=== PATIENT | male | born 1945 | race Caucasian/White ===

== ENCOUNTER 2017-05-18 08:51 | Inpatient (IN) | payer SELFPAY ==
[~2017-05-18] VITALS: Ht 170.2 cm; Wt 65.9 kg
[~2017-05-18 08:51] MED LIST: ALDACTONE25 MG PO; ASPIR 8181 M1 PO; ASPIR-LOW81 MG PO; ASPIRIN325 MG PO; Aspirin E.C. PO; BUMEX1 MG PO; CARBATROL-ER200 MG PO; CHILDREN'S ASPI81 M1 PO; CLEARLAX510 GM PO; CLOPIDOGREL75 MG PO; Cozaar PO; DIOVAN40 MG PO; Dulcolax PO; K-Dur PO; KLOR-CON M2020 MEQ PO; LASIX20 MG PO; LOPRESSOR25 MG PO; LOSARTAN POTASS50 MG PO; LOW DOSE ASPIRI81 M2; Lopressor PO; MEGA BENFOTIAMINE PO; METOPROLOL SUC100 MG PO; METOPROLOL SUCC25 MG PO; METOPROLOL TART50 MG PO; Miralax, Glycolax PO; Motrin PO; NITROSTAT0.4 MG SL; OMNICEF300 M1 PO; Omnicef PO; PEPPERMINT OIL TP; PRAVASTATIN SOD10 MG PO; PROVENTIL,2.5 MG/3 M IH; PROVENTIL,200 INHALA IH; Protonix PO; Proventil,Ventolin H IH; Ultram PO; VITAMIN B-1250 MG PO; VITAMIN E200 UNI2 PO; VITAMIN E200 UNI3 PO; Xanax PO; Zocor PO
[2017-05-18 10:04] LABS: HEMATOCRIT 37.7 % (38.0-50.0); MCH 33.7 PG (29.0-34.0); MCHC 34.2 G/DL (30.0-36.0); MCV 98.4 FL (86-99); MEAN PLAT.VOLUME 9.8 uM^3 (9.0-12.4); PLATELET COUNT 124 K/uL (156-360); RBC DIS.WIDTH-CV 13.2 % (11.8-14.6); RBC DIS.WIDTH-SD 47.8 % (39-53); RED BLOOD COUNT 3.83 M/uL (4.00-5.50); WHITE BLOOD COUNT 8.5 K/uL (4.1-10.2)
[2017-05-18 10:13] LABS: CHLORIDE 94 mEq/L (99-109); POTASSIUM 4.9 mEq/L (3.7-5.4); SODIUM 127 mEq/L (136-147)
[2017-05-18 10:15] LABS: GLUCOSE 118 mg/dL (70-99)
[2017-05-18 10:17] LABS: ANION GAP 8 MEQ/L (2-14); TOTAL BILIRUBIN 0.6 mg/dL (0.0-1.0)
[2017-05-18 10:19] LABS: ALKALINE PHOSPHATASE 74 IU/L (3-129); GFR ESTIMATE (CALCULATED) > 59 mL/min/
[2017-05-18 10:20] LABS: UREA NITROGEN (BUN) 20 mg/dL (9-23)
[2017-05-18] MEDS ORDERED: VITAMIN B-6100 MG PO (11:55)
[2017-05-18] MEDS ORDERED: CATAPLEX B PO (11:57)
[2017-05-18] MEDS ORDERED: CATALYN PO ×2 (11:59→12:00)
[2017-05-18] MEDS ORDERED: COD LIVER OIL1 EACH PO (12:00)
[2017-05-18] MEDS ORDERED: L-LYSINE500 M2 PO (12:01)
[2017-05-18] MEDS ORDERED: [UNRECOGNIZED DRUG - OTHER] PO (12:05)
[2017-05-18] MEDS ORDERED: CALCIUM LACTAT100 MG PO (12:14)
[2017-05-18 15:33] VITALS: BP 112/64
[2017-05-18 21:00] VITALS: BP 125/78
[2017-05-18 23:30] VITALS: BP 122/82
[2017-05-19 04:00] VITALS: BP 113/57
[2017-05-19 06:38] LABS: EOSINOPHIL (%) 0 % (0-5); HEMATOCRIT 39.3 % (38.0-50.0); IMMATURE GRANULOCYTE (%) 0.5 % (0.0-0.7); INSTRUMENT ABS NEUTROPHIL CT 6.6 K/uL; LYMPHOCYTE COUNT 0.4 K/uL (1.0-2.8); MCH 34.5 PG (29.0-34.0); MCHC 34.4 G/DL (30.0-36.0); MCV 100.5 FL (86-99); MEAN PLAT.VOLUME 10.2 uM^3 (9.0-12.4); MONOCYTE (%) 5.6 % (3-12); MONOCYTE COUNT 0.4 K/uL (0-0.8); NEUTROPHIL (%) 88.2 % (45-76); NEUTROPHIL COUNT 6.6 K/uL (1.8-6.4); PLATELET COUNT 112 K/uL (156-360); RBC DIS.WIDTH-CV 13.2 % (11.8-14.6); RBC DIS.WIDTH-SD 49.2 % (39-53); RED BLOOD COUNT 3.91 M/uL (4.00-5.50); WHITE BLOOD COUNT 7.5 K/uL (4.1-10.2)
[2017-05-19 06:45] VITALS: BP 136/77
[2017-05-19 06:57] LABS: ANION GAP 11 MEQ/L (2-14); CHLORIDE 96 MEQ/L (99-109); GFR ESTIMATE (CALCULATED) > 59 mL/min/; GLUCOSE 138 mg/dL (70-99); POTASSIUM 4.5 MEQ/L (3.7-5.4); SAMPLE HEMOLYSIS CHECK 0; SAMPLE ICTERIC CHECK 0; SAMPLE LIPEMIA CHECK 0; SODIUM 131 MEQ/L (136-147); UREA NITROGEN (BUN) 19 mg/dL (9-23)
[2017-05-19 15:00] VITALS: BP 130/72
[2017-05-20 00:05] VITALS: BP 134/72
[2017-05-20 04:20] VITALS: BP 128/68
[2017-05-20 06:33] LABS: HEMATOCRIT 36.7 % (38.0-50.0); MCH 33.9 PG (29.0-34.0); MCHC 34.1 G/DL (30.0-36.0); MCV 99.5 FL (86-99); MEAN PLAT.VOLUME 10.1 uM^3 (9.0-12.4); PLATELET COUNT 144 K/uL (156-360); RBC DIS.WIDTH-CV 13.1 % (11.8-14.6); RBC DIS.WIDTH-SD 47.8 % (39-53); RED BLOOD COUNT 3.69 M/uL (4.00-5.50); WHITE BLOOD COUNT 11.9 K/uL (4.1-10.2)
[2017-05-20 06:57] LABS: ALKALINE PHOSPHATASE 64 IU/L (3-129); ANION GAP 12 MEQ/L (2-14); CHLORIDE 99 MEQ/L (99-109); GFR ESTIMATE (CALCULATED) > 59 mL/min/; GLUCOSE 120 mg/dL (70-99); POTASSIUM 4.6 MEQ/L (3.7-5.4); SAMPLE HEMOLYSIS CHECK 0; SAMPLE ICTERIC CHECK 0; SAMPLE LIPEMIA CHECK 0; SODIUM 133 MEQ/L (136-147); TOTAL BILIRUBIN 0.5 MG/DL (0.0-1.0); UREA NITROGEN (BUN) 25 mg/dL (9-23)
[2017-05-20 07:00] VITALS: BP 128/78
[2017-05-20 11:00] VITALS: BP 130/80
[2017-05-20 15:00] VITALS: BP 131/83
[2017-05-20 23:35] VITALS: BP 122/78
[2017-05-21 06:20] LABS: ALKALINE PHOSPHATASE 65 IU/L (3-129); ANION GAP 11 MEQ/L (2-14); CHLORIDE 99 MEQ/L (99-109); GFR ESTIMATE (CALCULATED) > 59 mL/min/; GLUCOSE 118 mg/dL (70-99); POTASSIUM 4.8 MEQ/L (3.7-5.4); SAMPLE HEMOLYSIS CHECK 0; SAMPLE ICTERIC CHECK 0; SAMPLE LIPEMIA CHECK 0; SODIUM 132 MEQ/L (136-147); TOTAL BILIRUBIN 0.5 MG/DL (0.0-1.0); UREA NITROGEN (BUN) 31 mg/dL (9-23)
[2017-05-21 07:34] VITALS: BP 140/90
[2017-05-21 15:27] VITALS: BP 125/67
[2017-05-21 22:22] VITALS: BP 122/62
[2017-05-22 07:27] VITALS: BP 124/68
[2017-05-22 11:11] LABS: BASOPHIL COUNT 0.1 K/uL (0-0.1); EOSINOPHIL (%) 0.2 % (0-5); HEMATOCRIT 35.7 % (38.0-50.0); IMMATURE GRANULOCYTE (%) 0.7 % (0.0-0.7); IMMATURE GRANULOCYTE COUNT 0.1 K/uL; INSTRUMENT ABS NEUTROPHIL CT 12.6 K/uL; LYMPHOCYTE COUNT 0.6 K/uL (1.0-2.8); MCH 33.8 PG (29.0-34.0); MCHC 33.6 G/DL (30.0-36.0); MCV 100.6 FL (86-99); MEAN PLAT.VOLUME 9.5 uM^3 (9.0-12.4); MONOCYTE (%) 8.7 % (3-12); MONOCYTE COUNT 1.3 K/uL (0-0.8); NEUTROPHIL (%) 86.2 % (45-76); NEUTROPHIL COUNT 12.6 K/uL (1.8-6.4); PLATELET COUNT 166 K/uL (156-360); RBC DIS.WIDTH-CV 13.2 % (11.8-14.6); RBC DIS.WIDTH-SD 49.2 % (39-53); RED BLOOD COUNT 3.55 M/uL (4.00-5.50); WHITE BLOOD COUNT 14.7 K/uL (4.1-10.2)
[2017-05-22] MEDS ORDERED: CEFTIN500 MG PO (12:11)
[2017-05-22] MEDS ORDERED: VALACYCLOVIR500 MG PO (12:11)
[2017-05-22] MEDS ORDERED: COMBIVENT RESPIM4 GM IH (12:11)
[2017-05-22] MEDS ORDERED: PREDNISONE20 MG PO (12:12)
[2017-05-22] MEDS ORDERED: ERYTHROMYC1 APPLICAT BOTH EYES (12:14)
== END 2017-05-22 15:45 | disposition home or self-care (01) | DRG 125 ==
LOC: EME 08:51 → EDOF 11:56 → 5EAST 11:56 → ENRESERV 12:33 → EDOF 12:58 → ENRESERV 12:58 → 5EAST 14:50
PROVIDERS: Internal Medicine; Nurse Practitioner Family
DX: B02.39 Other herpes zoster eye disease (principal); B02.31 Zoster conjunctivitis; H10.502 Unspecified blepharoconjunctivitis, left eye; B02.8 Zoster with other complications; L03.213 Periorbital cellulitis; L03.211 Cellulitis of face; B01.89 Other varicella complications; E87.1 Hypo-osmolality and hyponatremia; H35.369 Drusen (degenerative) of macula, unspecified eye; H43.813 Vitreous degeneration, bilateral; I11.0 Hypertensive heart disease with heart failure; I50.9 Heart failure, unspecified; I25.10 Atherosclerotic heart disease of native coronary artery without angina pectoris; I25.5 Ischemic cardiomyopathy; G62.9 Polyneuropathy, unspecified; G25.81 Restless legs syndrome; I25.2 Old myocardial infarction; F03.90 Unspecified dementia, unspecified severity, without behavioral disturbance, psychotic disturbance, mood disturbance, and anxiety; J45.909 Unspecified asthma, uncomplicated; F41.9 Anxiety disorder, unspecified; Z66 Do not resuscitate; Z82.49 Family history of ischemic heart disease and other diseases of the circulatory system; Z85.828 Personal history of other malignant neoplasm of skin; Z86.74 Personal history of sudden cardiac arrest; Z95.5 Presence of coronary angioplasty implant and graft; Z95.810 Presence of automatic (implantable) cardiac defibrillator
CPT/HCPCS: 71010; 80048; 80053; 80202; 83930; 83935; 84300; 85025; 85027; 87040; 87070; 87075; 87205; 87254; 99202; 99281; 99285; J0133; J0696; J1650; J2405; J3370; J7030; J7050; J7512

== ENCOUNTER 2018-02-26 19:33 | Inpatient (IN) | payer SELFPAY ==
[~2018-02-26] VITALS: Ht 167.6 cm; Wt 76.0 kg
[~2018-02-26 19:33] MED LIST changes: +CALCIUM LACTAT100 MG PO; +CATALYN PO; +CATAPLEX B PO; +CEFTIN500 MG PO; +COD LIVER OIL1 EACH PO; +COMBIVENT RESPIM4 GM IH; +ERYTHROMYC1 APPLICAT BOTH EYES; +L-LYSINE500 M2 PO; +PREDNISONE20 MG PO; +VALACYCLOVIR500 MG PO; +VITAMIN B-6100 MG PO; +[UNRECOGNIZED DRUG - OTHER] PO
[2018-02-26 20:02] LABS: HEMATOCRIT 33.7 % (38.0-50.0); HEMOGLOBIN 12.1 G/DL (12.5-16.6); MCH 35.2 PG (29.0-34.0); MCHC 35.9 G/DL (30.0-36.0); PLATELET COUNT 144 K/uL (156-360); RBC DIS.WIDTH-CV 13.4 % (11.8-14.6); RBC DIS.WIDTH-SD 48.7 % (39-53); RED BLOOD COUNT 3.44 M/uL (4.00-5.50); WHITE BLOOD COUNT 6.6 K/uL (4.1-10.2)
[2018-02-26 20:13] LABS: CHLORIDE 96 mEq/L (99-109); POTASSIUM 4.6 mEq/L (3.7-5.4); SODIUM 132 mEq/L (136-147)
[2018-02-26 20:14] LABS: GLUCOSE 151 mg/dL (70-99)
[2018-02-26 20:18] LABS: CREATININE 0.9 mg/dL (0.6-1.3); GFR ESTIMATE (CALCULATED) > 59 mL/min/ (58.99-99999)
[2018-02-26 20:19] LABS: UREA NITROGEN (BUN) 21 mg/dL (9-23)
[2018-02-26 20:25] LABS: TROP-I INTERPRETATION NEGATIVE; TROPONIN-I < 0.01 ng/mL (0.0-0.30)
[2018-02-26 21:28] LABS: TOTAL PROTEIN 6.8 g/dL (6.4-8.3)
[2018-02-26 21:30] LABS: TOTAL BILIRUBIN 0.3 mg/dL (0.0-1.0)
[2018-02-26 21:31] LABS: ALKALINE PHOSPHATASE 77 IU/L (3-129)
[2018-02-26 21:33] LABS: AST (GOT) 15 IU/L (2-34); DIRECT BILIRUBIN 0.1 mg/dL (0.0-0.3)
[2018-02-26 21:34] LABS: ALT (GPT) 15 IU/L (3-49)
[2018-02-26] MEDS ORDERED: PLAVIX75 MG PO (23:35)
[2018-02-26] MEDS ORDERED: A-F BETAFOOD PO (23:42)
[2018-02-26] MEDS ORDERED: A-C CARBAMIDE PO (23:43)
[2018-02-26] MEDS ORDERED: LOSARTAN POTASS25 MG PO (23:44)
[2018-02-26] MEDS ORDERED: CARDIOPLUS PO (23:45)
[2018-02-26] MEDS ORDERED: [UNRECOGNIZED DRUG - OTHER] PO (23:46)
[2018-02-26] MEDS ORDERED: [UNRECOGNIZED DRUG - OTHER] PO (23:47)
[2018-02-26] MEDS ORDERED: CALCIUM LACTAT100 MG PO (23:47)
[2018-02-26] MEDS ORDERED: [UNRECOGNIZED DRUG - SUPPLY] TP (23:47)
[2018-02-26] MEDS ORDERED: ATACAND4 MG PO (23:48)
[2018-02-26] MEDS ORDERED: [UNRECOGNIZED DRUG - OTHER] PO (23:48)
[2018-02-26] MEDS ORDERED: [UNRECOGNIZED DRUG - OTHER] PO (23:49)
[2018-02-26] MEDS ORDERED: [UNRECOGNIZED DRUG - OTHER] PO (23:49)
[2018-02-27 03:13] VITALS: BP 106/59
[2018-02-27 07:37] VITALS: BP 112/63
[2018-02-27 12:01] VITALS: BP 120/67
[2018-02-27 15:27] VITALS: BP 114/63
[2018-02-27 21:04] VITALS: BP 115/67
[2018-02-28] VITALS (8 sets, daily range): BP systolic 84–129; BP diastolic 52–65
[2018-02-28 16:47] LABS: CHLORIDE 105 mEq/L (99-109); POTASSIUM 4.8 mEq/L (3.7-5.4); SODIUM 134 mEq/L (136-147)
[2018-02-28 16:48] LABS: GLUCOSE 182 mg/dL (70-99)
[2018-02-28 16:52] LABS: HEMATOCRIT 26.2 % (38.0-50.0); MCHC 34.4 G/DL (30.0-36.0); MCV 101.9 FL (86-99); PLATELET COUNT 107 K/uL (156-360); RBC DIS.WIDTH-CV 13.9 % (11.8-14.6); RBC DIS.WIDTH-SD 52.2 % (39-53); RED BLOOD COUNT 2.57 M/uL (4.00-5.50); WHITE BLOOD COUNT 14.4 K/uL (4.1-10.2)
[2018-02-28 16:52] LABS: CREATININE 0.9 mg/dL (0.6-1.3); GFR ESTIMATE (CALCULATED) > 59 mL/min/ (58.99-99999)
[2018-02-28 16:53] LABS: UREA NITROGEN (BUN) 26 mg/dL (9-23)
[2018-03-01] VITALS (14 sets, daily range): BP systolic 86–119; BP diastolic 53–67
[2018-03-01 06:56] LABS: HEMATOCRIT 19.4 % (38.0-50.0); MCH 34.9 PG (29.0-34.0); MCHC 34.5 G/DL (30.0-36.0); PLATELET COUNT 84 K/uL (156-360); RBC DIS.WIDTH-CV 13.8 % (11.8-14.6); RBC DIS.WIDTH-SD 50.7 % (39-53); WHITE BLOOD COUNT 9.8 K/uL (4.1-10.2)
[2018-03-01 06:57] LABS: HEMOGLOBIN 6.7 G/DL (12.5-16.6); RED BLOOD COUNT 1.92 M/uL (4.00-5.50)
[2018-03-01 07:18] LABS: ALKALINE PHOSPHATASE 59 IU/L (3-129); ALT (GPT) 9 IU/L (3-49); AST (GOT) 24 IU/L (2-34); CHLORIDE 103 MEQ/L (99-109); CREATININE 1.2 MG/DL (0.6-1.3); GFR ESTIMATE (CALCULATED) > 59 mL/min/ (58.99-99999); GLUCOSE 144 mg/dL (70-99); POTASSIUM 5.1 MEQ/L (3.7-5.4); SODIUM 133 MEQ/L (136-147); TOTAL BILIRUBIN 0.4 MG/DL (0.0-1.0); TOTAL PROTEIN 4.8 G/DL (6.4-8.3); UREA NITROGEN (BUN) 35 mg/dL (9-23)
[2018-03-01 19:36] LABS: HEMATOCRIT 25.3 % (38.0-50.0)
[2018-03-01 19:37] LABS: HEMOGLOBIN 8.7 G/DL (12.5-16.6); MCV 95.5 FL (86-99)
[2018-03-02] VITALS (7 sets, daily range): BP systolic 95–133; BP diastolic 45–84
[2018-03-02 06:44] LABS: HEMATOCRIT 23.8 % (38.0-50.0); HEMOGLOBIN 8.2 G/DL (12.5-16.6); MCH 32.8 PG (29.0-34.0); MCHC 34.5 G/DL (30.0-36.0); MCV 95.2 FL (86-99); PLATELET COUNT 93 K/uL (156-360); RBC DIS.WIDTH-CV 15.6 % (11.8-14.6); RBC DIS.WIDTH-SD 54.2 % (39-53); WHITE BLOOD COUNT 9.5 K/uL (4.1-10.2)
[2018-03-02 07:08] LABS: CHLORIDE 99 MEQ/L (99-109); CREATININE 0.8 MG/DL (0.6-1.3); GFR ESTIMATE (CALCULATED) > 59 mL/min/ (58.99-99999); GLUCOSE 112 mg/dL (70-99); POTASSIUM 4.8 MEQ/L (3.7-5.4); SODIUM 130 MEQ/L (136-147); UREA NITROGEN (BUN) 31 mg/dL (9-23)
[2018-03-02 08:23] LABS: TROP-I INTERPRETATION NEGATIVE; TROPONIN-I < 0.01 ng/mL (0.0-0.30)
[2018-03-03] VITALS (7 sets, daily range): BP systolic 111–153; BP diastolic 62–88
[2018-03-03 06:45] LABS: HEMATOCRIT 24.2 % (38.0-50.0); HEMOGLOBIN 8.3 G/DL (12.5-16.6); MCH 32.5 PG (29.0-34.0); MCHC 34.3 G/DL (30.0-36.0); MCV 94.9 FL (86-99); PLATELET COUNT 108 K/uL (156-360); RBC DIS.WIDTH-CV 14.8 % (11.8-14.6); RBC DIS.WIDTH-SD 51.8 % (39-53); RED BLOOD COUNT 2.55 M/uL (4.00-5.50); WHITE BLOOD COUNT 8.9 K/uL (4.1-10.2)
[2018-03-03 07:19] LABS: ALBUMIN 3.1 G/DL (3.2-4.8); ALKALINE PHOSPHATASE 66 IU/L (3-129); ALT (GPT) 9 IU/L (3-49); AST (GOT) 26 IU/L (2-34); CHLORIDE 98 MEQ/L (99-109); CREATININE 0.5 MG/DL (0.6-1.3); GFR ESTIMATE (CALCULATED) > 59 mL/min/ (58.99-99999); GLUCOSE 117 mg/dL (70-99); POTASSIUM 4.6 MEQ/L (3.7-5.4); SODIUM 129 MEQ/L (136-147); TOTAL PROTEIN 5.2 G/DL (6.4-8.3); UREA NITROGEN (BUN) 18 mg/dL (9-23)
[2018-03-03 07:26] LABS: TOTAL BILIRUBIN 0.7 MG/DL (0.0-1.0)
[2018-03-04 03:37] VITALS: BP 139/64
[2018-03-04 07:27] VITALS: BP 140/80
[2018-03-04 11:33] VITALS: BP 110/64
[2018-03-04 14:49] LABS: CHLORIDE 96 MEQ/L (99-109); CREATININE 0.5 MG/DL (0.6-1.3); GFR ESTIMATE (CALCULATED) > 59 mL/min/ (58.99-99999); GLUCOSE 166 mg/dL (70-99); POTASSIUM 4.6 MEQ/L (3.7-5.4); SODIUM 126 MEQ/L (136-147); UREA NITROGEN (BUN) 11 mg/dL (9-23)
[2018-03-04 15:31] VITALS: BP 99/55
[2018-03-04 19:54] VITALS: BP 112/58
[2018-03-04 23:30] VITALS: BP 140/64
[2018-03-05] VITALS (7 sets, daily range): BP systolic 102–131; BP diastolic 52–68
[2018-03-05 06:49] LABS: HEMATOCRIT 22.9 % (38.0-50.0); HEMOGLOBIN 7.7 G/DL (12.5-16.6); MCHC 33.6 G/DL (30.0-36.0); MCV 98.3 FL (86-99); RBC DIS.WIDTH-CV 14.7 % (11.8-14.6); RBC DIS.WIDTH-SD 50.5 % (39-53); RED BLOOD COUNT 2.33 M/uL (4.00-5.50); WHITE BLOOD COUNT 7.4 K/uL (4.1-10.2)
[2018-03-05 06:54] LABS: PLATELET COUNT 163 K/uL (156-360)
[2018-03-05 07:11] LABS: ALBUMIN 2.6 G/DL (3.2-4.8); ALKALINE PHOSPHATASE 63 IU/L (3-129); ALT (GPT) 11 IU/L (3-49); AST (GOT) 24 IU/L (2-34); CHLORIDE 98 MEQ/L (99-109); CREATININE 0.5 MG/DL (0.6-1.3); GFR ESTIMATE (CALCULATED) > 59 mL/min/ (58.99-99999); GLUCOSE 113 mg/dL (70-99); POTASSIUM 4.8 MEQ/L (3.7-5.4); SODIUM 130 MEQ/L (136-147); TOTAL BILIRUBIN 0.7 MG/DL (0.0-1.0); TOTAL PROTEIN 4.8 G/DL (6.4-8.3); UREA NITROGEN (BUN) 12 mg/dL (9-23)
[2018-03-05 13:57] LABS: MAGNESIUM 1.7 mg/dl (1.3-2.7); URIC ACID 1.8 mg/dL (3.1-9.2)
[2018-03-06 04:19] VITALS: BP 120/54
[2018-03-06 06:21] LABS: ALBUMIN 2.8 G/DL (3.2-4.8); CHLORIDE 98 MEQ/L (99-109); CREATININE 0.6 MG/DL (0.6-1.3); GFR ESTIMATE (CALCULATED) > 59 mL/min/ (58.99-99999); GLUCOSE 107 mg/dL (70-99); PHOSPHORUS 3.7 mg/dL (2.5-4.9); POTASSIUM 4.6 MEQ/L (3.7-5.4); SODIUM 130 MEQ/L (136-147); UREA NITROGEN (BUN) 13 mg/dL (9-23)
[2018-03-06 06:48] LABS: HEMATOCRIT 23.3 % (38.0-50.0); HEMOGLOBIN 7.7 G/DL (12.5-16.6); MCH 32.8 PG (29.0-34.0); MCV 99.1 FL (86-99); PLATELET COUNT 188 K/uL (156-360); RBC DIS.WIDTH-CV 14.7 % (11.8-14.6); RBC DIS.WIDTH-SD 51.7 % (39-53); RED BLOOD COUNT 2.35 M/uL (4.00-5.50)
[2018-03-06 07:11] VITALS: BP 109/62
[2018-03-06 11:11] VITALS: BP 96/51
[2018-03-06] MEDS ORDERED: TAMSULOSIN HCL0.4 MG PO (14:27)
[2018-03-06] MEDS ORDERED: LOSARTAN POTASS25 MG PO (14:28)
[2018-03-06] MEDS ORDERED: KLOR-CON SPRIN10 MEQ PO (14:32)
[2018-03-06] MEDS ORDERED: SODIUM CHLORIDE1 G1 PO (14:58)
[2018-03-06 15:13] VITALS: BP 101/54
== END 2018-03-06 16:43 | DRG 481 ==
LOC: EME 19:33 → 3EAST 02-27 01:19 → EDOF 02-27 01:19 → ENRESERV 02-27 01:21 → 3EAST 02-27 03:03
PROVIDERS: Internal Medicine; Internal Medicine Nephrology
PROC: 0QS634Z Reposition Right Upper Femur with Internal Fixation Device, Percutaneous Approach (ICD-10-PCS; principal; 2018-02-28)
PROC: 30233N1 Transfusion of Nonautologous Red Blood Cells into Peripheral Vein, Percutaneous Approach (ICD-10-PCS; 2018-03-01)
DX: S72.141A Displaced intertrochanteric fracture of right femur, initial encounter for closed fracture (principal); I50.22 Chronic systolic (congestive) heart failure; Y92.009 Unspecified place in unspecified non-institutional (private) residence as the place of occurrence of the external cause; D62 Acute posthemorrhagic anemia; K56.7 Ileus, unspecified; I95.81 Postprocedural hypotension; I11.0 Hypertensive heart disease with heart failure; R33.9 Retention of urine, unspecified; G50.0 Trigeminal neuralgia; R09.02 Hypoxemia; M81.0 Age-related osteoporosis without current pathological fracture; I25.5 Ischemic cardiomyopathy; D69.6 Thrombocytopenia, unspecified; E78.5 Hyperlipidemia, unspecified; Z95.5 Presence of coronary angioplasty implant and graft; I25.10 Atherosclerotic heart disease of native coronary artery without angina pectoris; I25.2 Old myocardial infarction; Z95.810 Presence of automatic (implantable) cardiac defibrillator; F41.9 Anxiety disorder, unspecified; E87.1 Hypo-osmolality and hyponatremia; Z86.74 Personal history of sudden cardiac arrest; G62.9 Polyneuropathy, unspecified
CPT/HCPCS: 71045; 71275; 72132; 73030; 73060; 73090; 73502; 74018; 74177; 76000; 80048; 80053; 80069; 80076; 83735; 83930; 83935; 84300; 84484; 84550; 85014; 85018; 85027; 85379; 86850; 86900; 86901; 86920; 93005; 93971; 94760; 94799; 97530 GO; 97530 GP; 99281; 99284; A6214; C1713; C1755; J0131; J0690; J1100; J1644; J2060; J2270; J2405; J2710; J3010; J7030; J7050; J7643; P9016